=== PATIENT | female | born 1980 | race African-American/Black ===

== ENCOUNTER 2017-04-18 15:05 | Emergency (ER) | payer MEDICAID ==
[~2017-04-18] VITALS: Ht 167.6 cm; Wt 68.9 kg
[2017-04-18 15:28] VITALS: BP 125/84
[2017-04-18 16:00] LABS: Basophils # (auto) 0 uL; Basophils % (auto) 0.6 % (0.0-2.0); Eosinophils # (auto) 0.1 uL; Eosinophils % (auto) 0.8 % (0.0-7.0); Hematocrit 41.5 % (36.0-46.0); Hemoglobin 13.8 g/dL (12.2-16.2); Lymphocytes # (auto) 2.1 uL; Lymphocytes % (auto) 33.9 % (10.0-50.0); Mean Corpuscular Hemoglobin 32.5 pg (28.0-32.0); Mean Corpuscular Hgb Conc. 33.3 g/dL (32.0-36.0); Mean Corpuscular Volume 97.6 fL (80.0-100.0); Mean Platelet Volume 8.7 fL (7.4-10.4); Monocytes # (auto) 0.7 uL; Neutrophils # (auto) 3.3 uL; Neutrophils % (auto) 53.7 % (37.0-80.0); Platelet Count (auto) 287 10^3/uL (140-450); Red Cell Distribution Width 13.5 % (11.6-16.0); White Blood Cell 6.2 10^3/uL (4.4-10.8)
[2017-04-18 16:12] LABS: Albumin 4.2 g/dL (3.4-5.0); BUN/Creatinine Ratio 7.1; Calcium 8.4 mg/dL (8.5-10.1); Potassium 3.8 mmol/L (3.5-5.1)
[2017-04-18 16:15] LABS: Bilirubin, Total 0.6 mg/dL (0.2-1.0); Total Protein 7.3 g/dL (6.4-8.2)
[2017-04-19] MEDS ORDERED: PAR20T PO (17:19)
[2017-04-19] MEDS ORDERED: CIPR0.3S40 OP (17:22)
== END 2017-04-18 20:27 | disposition left against medical advice (07) ==
LOC: ER 15:05
DX: R51 Headache (principal); R20.0 Anesthesia of skin; M79.601 Pain in right arm; Z53.21 Procedure and treatment not carried out due to patient leaving prior to being seen by health care provider
CPT/HCPCS: 36415; 80053; 84702; 85025; 93005

== ENCOUNTER 2017-04-19 09:33 | Inpatient (IN) | payer MEDICAID ==
[~2017-04-19] VITALS: Ht 167.6 cm; Wt 68.8 kg
[2017-04-19 11:46] LABS: Basophils # (auto) 0 uL; Basophils % (auto) 0.5 % (0.0-2.0); Eosinophils # (auto) 0.1 uL; Eosinophils % (auto) 1.2 % (0.0-7.0); Hemoglobin 13.7 g/dL (12.2-16.2); Lymphocytes # (auto) 1.8 uL; Lymphocytes % (auto) 36.4 % (10.0-50.0); Mean Corpuscular Hemoglobin 32.4 pg (28.0-32.0); Mean Corpuscular Hgb Conc. 33.4 g/dL (32.0-36.0); Mean Corpuscular Volume 97.2 fL (80.0-100.0); Mean Platelet Volume 8.2 fL (7.4-10.4); Monocytes # (auto) 0.5 uL; Monocytes % (auto) 11.1 % (0.0-12.0); Neutrophils # (auto) 2.5 uL; Neutrophils % (auto) 50.8 % (37.0-80.0); Platelet Count (auto) 283 10^3/uL (140-450); Red Cell Distribution Width 13.5 % (11.6-16.0); White Blood Cell 4.9 10^3/uL (4.4-10.8)
[2017-04-19 12:09] LABS: INR 1.02 (0.9-1.15); Partial Thromboplastin Time 28.8 sec (22.64-33.71); Prothrombin Time 11.1 sec (9.37-12.3)
[2017-04-19 12:16] LABS: Albumin 3.8 g/dL (3.4-5.0); Bilirubin, Total 0.7 mg/dL (0.2-1.0); Calcium 8.2 mg/dL (8.5-10.1); Magnesium 2.5 mg/dL (1.6-2.6); Potassium 4.2 mmol/L (3.5-5.1); Total Protein 7.3 g/dL (6.4-8.2)
[2017-04-19] MEDS ORDERED: NITROGLYCERIN 0.4 MG SL TAB SL PRN (13:15)
[2017-04-19] MEDS ORDERED: PROMETHAZINE HCL 25 MG/ML 1ML IV PRN (13:15)
[2017-04-19] MEDS ORDERED: LORazepam 0.5 MG TAB PO PRN (13:15)
[2017-04-19] MEDS ORDERED: MORPHINE SULF INJ 2 MG/ML SYRINGE 1ML IV PRN ×2 (13:15)
[2017-04-19] MEDS ORDERED: MILK OF MAGNESIA 30ML SUSP PO PRN (13:15)
[2017-04-19] MEDS ORDERED: MORPHINE SULFATE 4 MG/ML SYRG IV PRN (13:15)
[2017-04-19] MEDS ORDERED: TEMAZEPAM 15 MG CAP PO PRN (13:15)
[2017-04-19 13:21] LABS: Urine Bilirubin Negative (Negative); Urine Blood Negative /uL (Negative); Urine Color Yellow (Yellow); Urine Glucose Normal (Normal); Urine Ketone Negative (Negative); Urine Mucus FEW (None Seen); Urine Nitrite Negative (Negative); Urine RBC 8 /hpf (0 - 4); Urine Squamous Epithelial Cell MOD /hpf (<5); Urine pH 7.5 (5.0-8.0)
[2017-04-19] MEDS ORDERED: ASPirin 81 mg TAB PO ONE (13:30)
[2017-04-19] MEDS ORDERED: DULoxetine HCL 30 MG CAP PO ONE (13:30)
[2017-04-19] MEDS: SODIUM CHLORIDE 0.9% 1,000 ML IV SCH ×2 (13:32→16:49)
[2017-04-19] MEDS ORDERED: ENOXAPARIN SOD 40 MG/0.4 ML SYRINGE SC ONE (13:45)
[2017-04-19 14:40] VITALS: BP 109/71
[2017-04-19 15:39] LABS: Cholesterol 100 mg/dL (< 200); HDL Cholesterol 48 mg/dL (40-59); LDL Cholesterol 52 mg/dL (< 100); Triglycerides 44 mg/dL (< 150)
[2017-04-19 16:18] LABS: Temperature: 23.9 C (20.0-25.0)
[2017-04-19] MEDS ORDERED: PAR20T PO (17:19)
[2017-04-19] MEDS ORDERED: CIPR0.3S40 OP (17:22)
[2017-04-19 17:41] VITALS: BP 107/76
[2017-04-19] MEDS ORDERED: LORazepam 2MG/ML-1ML VIAL IV PRN (21:00)
[2017-04-19] MEDS ORDERED: CYANOCOBALAMIN (B-12) 1000 MCG/1 ML VIAL IM ONE (21:15)
[2017-04-19 22:00] VITALS: BP 109/70
[2017-04-19] MEDS ORDERED: ATORVASTATIN 20 MG TAB PO SCH (22:00)
[2017-04-20 05:00] VITALS: BP 112/53
[2017-04-20 09:00] VITALS: BP 108/60
[2017-04-20] MEDS ORDERED: CYANOCOBALAMIN 500 MCG TAB PO SCH (10:00)
[2017-04-20] MEDS ORDERED: DULoxetine HCL 30 MG CAP PO SCH (10:00)
[2017-04-20] MEDS ORDERED: ASPirin 81 mg TAB PO SCH (10:00)
[2017-04-20] MEDS ORDERED: ENOXAPARIN SOD 40 MG/0.4 ML SYRINGE SC SCH (10:00)
[2017-04-20 13:00] VITALS: BP 108/77
[2017-04-20] MEDS: SODIUM CHLORIDE 0.9% 1,000 ML IV SCH (14:15)
[2017-04-20] MEDS ORDERED: ASPI81CH43 PO (15:26)
[2017-04-20] MEDS ORDERED: CYAN500T2 PO (15:26)
== END 2017-04-20 16:30 | disposition home or self-care (01) | DRG 47 ==
LOC: ER 09:33 → TELE 09:34 → TELE-EAST 15:07
PROVIDERS: ADMIT Internal Medicine; ATTEND Internal Medicine
DX: G45.9 Transient cerebral ischemic attack, unspecified (principal); E53.8 Deficiency of other specified B group vitamins; F32.9 Major depressive disorder, single episode, unspecified; M79.7 Fibromyalgia; G51.0 Bell's palsy; Z82.3 Family history of stroke; Z82.49 Family history of ischemic heart disease and other diseases of the circulatory system; Z83.3 Family history of diabetes mellitus; F41.9 Anxiety disorder, unspecified; Z80.9 Family history of malignant neoplasm, unspecified; Z88.8 Allergy status to other drugs, medicaments and biological substances; Z90.710 Acquired absence of both cervix and uterus
CPT/HCPCS: 36415; 70450; 70551; 71010; 80053; 80061; 80307; 81001; 81025; 82550; 82607; 82746; 83735; 84443; 85025; 85610; 85652; 85730; 87081; 93005; 93306; 93886; 94761; 96372

== ENCOUNTER 2017-07-30 14:23 | Inpatient (IN) | payer MEDICAID ==
[~2017-07-30] VITALS: Ht 167.6 cm; Wt 73.2 kg
[~2017-07-30 14:23] MED LIST: ASPI81CH43 PO; CIPR0.3S40 OP; CYAN500T2 PO; PAR20T PO
[2017-07-30 14:56] LABS: Basophils # (auto) 0.1 uL; Basophils % (auto) 0.9 % (0.0-2.0); Eosinophils # (auto) 0 uL; Eosinophils % (auto) 0.5 % (0.0-7.0); Hematocrit 43.5 % (36.0-46.0); Hemoglobin 14.5 g/dL (12.2-16.2); Lymphocytes # (auto) 2.1 uL; Lymphocytes % (auto) 25.1 % (10.0-50.0); Mean Corpuscular Hgb Conc. 33.4 g/dL (32.0-36.0); Mean Corpuscular Volume 98.6 fL (80.0-100.0); Mean Platelet Volume 8.2 fL (7.4-10.4); Monocytes # (auto) 0.7 uL; Monocytes % (auto) 8.1 % (0.0-12.0); Neutrophils # (auto) 5.4 uL; Neutrophils % (auto) 65.4 % (37.0-80.0); Nucleated Red Blood Cells % 0.1 %; Platelet Count (auto) 262 10^3/uL (140-450); Red Cell Distribution Width 13.5 % (11.6-16.0); White Blood Cell 8.3 10^3/uL (4.4-10.8)
[2017-07-30 15:16] LABS: Albumin 4.3 g/dL (3.4-5.0); Calcium 8.8 mg/dL (8.5-10.1)
[2017-07-30 15:21] LABS: Bilirubin, Total 1.1 mg/dL (0.2-1.0); Total Protein 7.6 g/dL (6.4-8.2)
[2017-07-30] MEDS ORDERED: SODIUM CHLORIDE 0.9% 1,000 ML IVB ONE (16:41)
[2017-07-30] MEDS ORDERED: KETOROLAC TROMETH 30 MG/ML 1ML VIAL IV ONE (16:45)
[2017-07-30] MEDS ORDERED: ONDANSETRON HCL 4 MG/2 ML VIAL IV ONE (16:45)
[2017-07-30 17:06] LABS: Urine Bilirubin Negative (Negative); Urine Blood 1+ /uL (Negative); Urine Color Yellow (Yellow); Urine Glucose Normal (Normal); Urine Ketone 1+ (Negative); Urine Mucus FEW (None Seen); Urine Nitrite Negative (Negative); Urine RBC 8 /hpf (0 - 4); Urine Squamous Epithelial Cell FEW /hpf (<5); Urine Urobilinogen Normal (Negative); Urine pH 5.5 (5.0-8.0)
[2017-07-30 17:09] LABS: Magnesium 2.6 mg/dL (1.6-2.6)
[2017-07-30] MEDS ORDERED: cefTRIAXone 1GM/50ML D5W 50 ML IV ONE ×2 (18:00→19:00)
[2017-07-30] MEDS ORDERED: metroNIDAZOLE 500MG/100ML 100 ML IV ONE (18:15)
[2017-07-30] MEDS ORDERED: MORPHINE SULFATE 4 MG/ML SYRG IV PRN (19:00)
[2017-07-30] MEDS ORDERED: LORazepam 0.5 MG TAB PO PRN (19:00)
[2017-07-30] MEDS: SODIUM CHLORIDE 0.9% 1,000 ML IV SCH (19:30)
[2017-07-30] MEDS: MORPHINE SULF INJ 2 MG/ML SYRINGE 1ML IV PRN ×2 (19:52→23:55)
[2017-07-30] MEDS: PROMETHAZINE HCL 25 MG/ML 1ML IV PRN (19:53)
[2017-07-30 21:45] VITALS: BP 107/80
[2017-07-30 23:30] VITALS: BP 107/80
[2017-07-30] MEDS: metroNIDAZOLE 500MG/100ML 100 ML IV SCH (23:56)
[2017-07-31 04:59] VITALS: BP 112/75
[2017-07-31] MEDS: SODIUM CHLORIDE 0.9% 1,000 ML IV SCH ×2 (06:17→18:17)
[2017-07-31] MEDS: metroNIDAZOLE 500MG/100ML 100 ML IV SCH ×2 (06:17→12:28)
[2017-07-31 07:35] VITALS: BP 120/75
[2017-07-31] MEDS ORDERED: cefTRIAXone 1GM/50ML D5W 50 ML IV SCH (09:00)
[2017-07-31] MEDS: MORPHINE SULF INJ 2 MG/ML SYRINGE 1ML IV PRN ×2 (10:10→18:18)
[2017-07-31 11:47] VITALS: BP 112/47
[2017-07-31] MEDS ORDERED: PANTOPRAZOLE 40 MG TAB PO ONE (15:45)
[2017-08-01] VITALS (7 sets, daily range): BP systolic 110–135; BP diastolic 62–82
[2017-08-01] MEDS: MORPHINE SULF INJ 2 MG/ML SYRINGE 1ML IV PRN ×4 (01:05→22:38)
[2017-08-01] MEDS: TEMAZEPAM 15 MG CAP PO PRN ×2 (01:42→23:42)
[2017-08-01 05:47] LABS: Potassium 3.7 mmol/L (3.5-5.1)
[2017-08-01 05:49] LABS: BUN/Creatinine Ratio 9.6
[2017-08-01] MEDS: SODIUM CHLORIDE 0.9% 1,000 ML IV SCH ×2 (09:36→23:41)
[2017-08-01] MEDS: PROMETHAZINE HCL 25 MG/ML 1ML IV PRN ×3 (09:38→22:39)
[2017-08-01] MEDS ORDERED: PANTOPRAZOLE 40 MG TAB PO SCH (10:00)
[2017-08-01] MEDS ORDERED: cefTRIAXone 1GM/50ML D5W 50 ML IV ONE (13:15)
[2017-08-01] MEDS: PANTOPRAZOLE 40 MG/10 ML VIAL IV SCH (21:29)
[2017-08-02 05:00] VITALS: BP 123/74
[2017-08-02] MEDS: PROMETHAZINE HCL 25 MG/ML 1ML IV PRN ×3 (06:50→20:55)
[2017-08-02] MEDS: MORPHINE SULF INJ 2 MG/ML SYRINGE 1ML IV PRN ×2 (06:50→20:55)
[2017-08-02 07:30] LABS: INR 1.06 (0.9-1.15); Partial Thromboplastin Time 28.2 sec (22.64-33.71); Prothrombin Time 11.6 sec (9.37-12.3)
[2017-08-02 07:31] LABS: BUN/Creatinine Ratio 8.7; Calcium 8.1 mg/dL (8.5-10.1); Potassium 3.7 mmol/L (3.5-5.1)
[2017-08-02 08:30] VITALS: BP 120/79
[2017-08-02] MEDS ORDERED: diphenhdrAMINE HCL 50 MG/1 ML VL ONE (08:44)
[2017-08-02] MEDS ORDERED: LIDOCAINE VISCOUS 2% 15ML UD ONE (08:44)
[2017-08-02] MEDS ORDERED: SODIUM CHLORIDE LOCK 10 ML ONE (08:44)
[2017-08-02] MEDS ORDERED: cefTRIAXone 1GM/50ML D5W 50 ML IV SCH (09:00)
[2017-08-02] MEDS: PANTOPRAZOLE 40 MG/10 ML VIAL IV SCH ×2 (10:00→21:29)
[2017-08-02] MEDS: fentaNYL CITRATE 100 MCG/2 ML VL ONE ×2 (10:15→10:19)
[2017-08-02] MEDS: MIDAZOLAM HCL 5 MG/ML-1ML VIAL ONE ×2 (10:15→10:19)
[2017-08-02 12:44] VITALS: BP 120/86
[2017-08-02] MEDS: SODIUM CHLORIDE 0.9% 1,000 ML IV SCH (13:40)
[2017-08-02] MEDS ORDERED: PANT40TA2 PO (13:49)
[2017-08-02 17:08] VITALS: BP 124/83
[2017-08-02 21:30] VITALS: BP 121/85
[2017-08-02] MEDS: TEMAZEPAM 15 MG CAP PO PRN (21:30)
[2017-08-03] MEDS: SODIUM CHLORIDE 0.9% 1,000 ML IV SCH (04:53)
[2017-08-03] MEDS: MORPHINE SULF INJ 2 MG/ML SYRINGE 1ML IV PRN (04:54)
[2017-08-03] MEDS: PROMETHAZINE HCL 25 MG/ML 1ML IV PRN (04:54)
[2017-08-03 05:00] VITALS: BP 111/72
[2017-08-03 08:00] VITALS: BP 120/71
[2017-08-03] MEDS: PANTOPRAZOLE 40 MG/10 ML VIAL IV SCH (10:00)
== END 2017-08-03 15:00 | disposition home or self-care (01) | DRG 241 ==
LOC: ER 14:23 → OVERFLOW 14:24 → WEST WING 21:45
PROVIDERS: ADMIT Internal Medicine; ATTEND Internal Medicine
PROC: 0DB68ZX Excision of Stomach, Via Natural or Artificial Opening Endoscopic, Diagnostic (ICD-10-PCS; principal; 2017-08-02 10:12)
DX: K29.80 Duodenitis without bleeding (principal); N39.0 Urinary tract infection, site not specified; R10.13 Epigastric pain; F12.90 Cannabis use, unspecified, uncomplicated; F41.9 Anxiety disorder, unspecified; T40.7X5A Adverse effect of cannabis (derivatives), initial encounter; G47.00 Insomnia, unspecified; M79.7 Fibromyalgia; Z82.3 Family history of stroke; Z82.49 Family history of ischemic heart disease and other diseases of the circulatory system; Z83.3 Family history of diabetes mellitus; Z71.51 Drug abuse counseling and surveillance of drug abuser; Z88.6 Allergy status to analgesic agent; Z79.82 Long term (current) use of aspirin; Z79.899 Other long term (current) drug therapy; Z71.3 Dietary counseling and surveillance; Y92.89 Other specified places as the place of occurrence of the external cause
CPT/HCPCS: 36415; 71010; 74176; 76705; 80048; 80053; 81001; 82150; 83690; 83735; 84702; 85025; 85610; 85652; 85730; 86141; 87086; 94761; 96361; 96365; 96375; C9113; J0696; J1885; J2250; J2405; J3490

== ENCOUNTER 2021-06-07 12:39 | Emergency (ER) | payer MEDICAID ==
[~2021-06-07] VITALS: Ht 167.6 cm; Wt 73.9 kg
[~2021-06-07 12:39] MED LIST changes: +CIPR0.3S4 OP; -CIPR0.3S40 OP; -CYAN500T2 PO; +CYAN500T3 PO; +PANT40TA2 PO
[2021-06-07 12:48] VITALS: BP 92/50
[2021-06-07] MEDS ORDERED: SODIUM CHLORIDE 0.9% 1,000 ML IVB ONE (13:00)
[2021-06-07] MEDS ORDERED: SODIUM CHLORIDE 0.9% 1,000 ML IV ONE (13:00)
[2021-06-07] MEDS ORDERED: ONDANSETRON HCL 4 MG/2 ML VIAL IV ONE (13:00)
[2021-06-07] MEDS ORDERED: MORPHINE SULFATE 4 MG/ML SYR/VIAL IV ONE (13:00)
[2021-06-07 13:29] LABS: Basophils # (auto) 0.1 10 ^3/uL (0-0.2); Basophils % (auto) 1.7 % (0.0-2.0); Eosinophils # (auto) 0 10 ^3/uL (0-0.8); Eosinophils % (auto) 0.5 % (0.0-7.0); Hematocrit 38.4 % (36.0-46.0); Hemoglobin 13.1 g/dL (12.2-16.2); Lymphocytes # (auto) 2.2 10 ^3/uL (0.4-5.4); Lymphocytes % (auto) 28.2 % (10.0-50.0); Mean Corpuscular Hemoglobin 33.2 pg (28.0-32.0); Mean Corpuscular Hgb Conc. 34.1 g/dL (32.0-36.0); Mean Corpuscular Volume 97.4 fL (80.0-100.0); Monocytes # (auto) 0.8 10 ^3/uL (0-1.3); Monocytes % (auto) 10.1 % (0.0-12.0); Neutrophils # (auto) 4.7 10 ^3/uL (1.6-8.6); Neutrophils % (auto) 59.5 % (37.0-80.0); Nucleated Red Blood Cells % 0.1 %; Red Blood Cells 3.95 10^6/uL (4.0-5.20); Red Cell Distribution Width 14.4 % (11.8-14.3); White Blood Cell 7.8 10^3/uL (4.4-10.8)
[2021-06-07 13:54] LABS: Albumin 3.9 g/dL (3.4-5.0); Calcium 8.6 mg/dL (8.5-10.1); Potassium 3.9 mmol/L (3.5-5.1)
[2021-06-07 14:10] LABS: BUN/Creatinine Ratio 5.8; Bilirubin, Total 1.1 mg/dL (0.2-1.0); Total Protein 7.4 g/dL (6.4-8.2)
[2021-06-07 16:26] LABS: Urine Bacteria FEW /hpf (None Seen); Urine Blood 2+ /uL (Negative); Urine Mucus MANY (None Seen); Urine WBC 5 /hpf (0 - 5)
== END 2021-06-07 16:56 | disposition left against medical advice (07) ==
LOC: ER 12:39
DX: R10.84 Generalized abdominal pain (principal); R11.2 Nausea with vomiting, unspecified; F12.10 Cannabis abuse, uncomplicated; Z88.6 Allergy status to analgesic agent
CPT/HCPCS: 36415; 74176; 80053; 81001; 83690; 85025

== ENCOUNTER 2022-11-24 09:36 | Emergency (ER) | payer MEDICAID ==
[~2022-11-24] VITALS: Ht 167.6 cm; Wt 68.2 kg
[2022-11-24 10:41] LABS: Basophils # (auto) 0 10 ^3/uL (0-0.2); Basophils % (auto) 0.5 % (0.0-2.0); Eosinophils # (auto) 0.1 10 ^3/uL (0-0.8); Eosinophils % (auto) 0.9 % (0.0-7.0); Hematocrit 40.9 % (36.0-46.0); Hemoglobin 13.7 g/dL (12.2-16.2); Lymphocytes # (auto) 2.1 10 ^3/uL (0.4-5.4); Lymphocytes % (auto) 29.9 % (10.0-50.0); Mean Corpuscular Hemoglobin 32.9 pg (28.0-32.0); Mean Corpuscular Hgb Conc. 33.4 g/dL (32.0-36.0); Mean Corpuscular Volume 98.4 fL (80.0-100.0); Monocytes # (auto) 0.7 10 ^3/uL (0-1.3); Monocytes % (auto) 10.3 % (0.0-12.0); Neutrophils # (auto) 4.1 10 ^3/uL (1.6-8.6); Neutrophils % (auto) 58.4 % (37.0-80.0); Nucleated Red Blood Cells % 0.1 %; Red Blood Cells 4.16 10^6/uL (4.0-5.20); Red Cell Distribution Width 13.4 % (11.8-14.3); White Blood Cell 7.1 10^3/uL (4.4-10.8)
[2022-11-24 11:09] LABS: Albumin 4.1 g/dL (3.4-5.0); Calcium 8.5 mg/dL (8.5-10.1); Potassium 4.1 mmol/L (3.5-5.1)
[2022-11-24 11:13] LABS: Bilirubin, Total 0.7 mg/dL (0.2-1.0); Total Protein 7.1 g/dL (6.4-8.2)
[2022-11-24 11:17] VITALS: BP 117/70
[2022-11-24 11:37] LABS: Urine Bacteria NONE SEEN /hpf (None Seen); Urine Blood 1+ /uL (Negative); Urine Mucus FEW (None Seen); Urine Specific Gravity 1.018 (1.001-1.035); Urine WBC 1 /hpf (0 - 5)
[2022-11-24] MEDS ORDERED: BACDST PO (12:55)
[2022-11-24] MEDS ORDERED: IBUP600T27 PO (12:55)
== END 2022-11-24 12:58 | disposition home or self-care (01) ==
LOC: ER 09:38
DX: N83.202 Unspecified ovarian cyst, left side (principal); N39.0 Urinary tract infection, site not specified; Z79.1 Long term (current) use of non-steroidal anti-inflammatories (NSAID); Z79.82 Long term (current) use of aspirin; Z79.899 Other long term (current) drug therapy; Z88.8 Allergy status to other drugs, medicaments and biological substances
CPT/HCPCS: 36415; 74176; 80053; 81001; 81025; 83690; 85025

== ENCOUNTER 2024-01-03 16:31 | Emergency (ER) | payer MEDICAID ==
[~2024-01-03] VITALS: Ht 167.6 cm; Wt 71.7 kg
[~2024-01-03 16:31] MED LIST changes: +BACDST PO; +IBUP-1454 PO
[2024-01-03 18:29] LABS: Basophils # (auto) 0.1 10 ^3/uL (0-0.2); Basophils % (auto) 0.6 % (0.0-2.0); Eosinophils # (auto) 0.1 10 ^3/uL (0-0.8); Eosinophils % (auto) 0.7 % (0.0-7.0); Hematocrit 40.5 % (36.0-46.0); Hemoglobin 13.3 g/dL (12.2-16.2); Lymphocytes # (auto) 3.2 10 ^3/uL (0.4-5.4); Mean Corpuscular Hemoglobin 31.9 pg (28.0-32.0); Mean Corpuscular Hgb Conc. 32.9 g/dL (32.0-36.0); Mean Corpuscular Volume 96.9 fL (80.0-100.0); Monocytes # (auto) 0.7 10 ^3/uL (0-1.3); Monocytes % (auto) 7.7 % (0.0-12.0); Neutrophils # (auto) 5.4 10 ^3/uL (1.6-8.6); Nucleated Red Blood Cells % 0.2 %; Red Blood Cells 4.18 10^6/uL (4.0-5.20); Red Cell Distribution Width 14.9 % (11.8-14.3); White Blood Cell 9.5 10^3/uL (4.4-10.8)
[2024-01-03 18:35] LABS: Alanine Aminotransferase 22 U/L (7-40); Albumin 4.8 g/dL (3.2-4.8); Alkaline Phosphatase 100 U/L (46-116); Anion Gap 4 (5-15); Aspartate Aminotransferase 23 U/L (13-40); BUN/Creatinine Ratio 9.6 (10.0-20.0); Blood Urea Nitrogen 8 mg/dL (9-23); Calcium 9.3 mg/dL (8.7-10.4); Carbon Dioxide 27 mmol/L (20-30); Chloride 108 mmol/L (98-107); Glucose 89 mg/dL (74-106); Lipase 41 U/L (12-53); Potassium 3.6 mmol/L (3.5-5.1); Sodium 139 mmol/L (136-145); Total Protein 7.5 g/dL (5.7-8.2)
[2024-01-03 18:48] LABS: Urine Bacteria NONE SEEN /hpf (None Seen); Urine Blood 2+ /uL (Negative); Urine Clarity HAZY (Clear); Urine Color Yellow (Yellow); Urine Mucus MODERATE (None Seen); Urine Protein, UAD 1+ (Negative); Urine Specific Gravity 1.036 (1.001-1.035); Urine WBC 13 /hpf (0 - 5)
[2024-01-03 21:35] VITALS: BP 120/63; PULSE 89; RESP 14; TEMP 98.7; O2SAT 100
== END 2024-01-03 23:15 | disposition home or self-care (01) ==
LOC: ER 16:31
DX: K59.00 Constipation, unspecified (principal); R10.2 Pelvic and perineal pain; R10.9 Unspecified abdominal pain; Z98.890 Other specified postprocedural states; Z88.8 Allergy status to other drugs, medicaments and biological substances; Z79.899 Other long term (current) drug therapy
CPT/HCPCS: 36415; 74176; 80053; 81001; 83605; 83690; 84484; 84702; 85025; 93005